=== PATIENT | male | born 1980 ===

== ENCOUNTER 2025-04-21 07:00 | Day surgery (SDC) | payer OTHER ==
[2025-04-11 11:14] LABS: BASO % 1.0 % (0.1-1.2); EOS # 0.27 (0.04-0.54); EOS % 5.5 % (0.7-7.0); LYMPH # 1.56 (1.18-3.74); LYMPH % 31.5 % (19.3-53.1); MEAN PLATELET VOLUME 11.60 fl (9.4-12.4); MONO # 0.31 (0.24-0.82); MONO % 6.3 % (4.7-12.5); NEUT # 2.75 (1.56-6.13); NEUT % 55.5 % (34.0-71.1); RED CELL DISTRIBUTION WIDTH 11.9 % (11.6-14.4)
[2025-04-11 11:17] VITALS: BP 121/81
[2025-04-11 11:19] LABS: URINE APPEARANCE Clear; URINE BILIRRUBIN Negative (NEGATIVE); URINE BLOOD Negative; URINE COLOR Yellow; URINE GLUCOSE Negative (NEGATIVE); URINE KETONE Negative (NEGATIVE); URINE LEUKOCYTE Negative; URINE NITRATE Negative; URINE PROTEIN Negative (NEGATIVE); URINE UROBILINOGEN 0.2 E.U./dl
[2025-04-11 11:25] LABS: URINE BACTERIA 4.7 uL (0.0-1933); URINE RBC 12.0 uL (0.0-20.8)
[2025-04-11 11:31] LABS: URINE CAST 0.00 uL (0.0-1.40); URINE EPITHELIAL CELLS 0.7 uL (0.0-38.8); URINE WBC 1.0 uL (0.0-23.2)
[2025-04-11 11:41] LABS: INR 1.11
[2025-04-11 11:56] LABS: ALT/SGPT 52.0 U/L (12-78); AST/SGOT 23.0 U/L (15-37); BILIRUBIN TOTAL 0.61 mg/dL (0.3-1.2); BUN CREA RATIO 21.0 (7.0-25.0); CREATININE SERUM 1.04 mg/dL (0.70-1.30); GFR 77.58; GLOBULINA 2.8 G/DL (2.4-3.5); GLUCOSE FASTING 107.0 mg/dL (65-100); OSMOLALITY SERUM 285.0 MOSM/KG (275-295)
[~2025-04-21] VITALS: Ht 177.8 cm; Wt 93.0 kg
[~2025-04-21 07:00] MED LIST: CRESTOR40 MG PO
[2025-04-21] MEDS ORDERED: DIBUCAINE 30 GM TUBE ONE (08:05)
[2025-04-21] MEDS ORDERED: BUPIVACAINE HCL/Mpf 0.5% 10ML VIAL ONE (08:05)
[2025-04-21] MEDS ORDERED: HEMOSTATIC MATRIX 1 KIT KIT TOP ONE (08:05)
[2025-04-21] MEDS ORDERED: CHLORHEXIDINE GLUCONATE 120 ML BOTTLE TOP ONE (08:06)
[2025-04-21] MEDS ORDERED: METRONIDAZOLE/SODIUM CHLORIDE 500 MG/100 ML PIGGYBACK IV ONE (08:06)
[2025-04-21] MEDS ORDERED: LIDOCAINE HCL 1%/EPINEPHRINE 20ML VIAL IJ ONE (08:06)
[2025-04-21] MEDS ORDERED: CEFTRIAXONE SODIUM 2,000 MG VIAL IV ONE (11:45)
[2025-04-21] MEDS ORDERED: PERCOCET 5-3251 EACH PO (11:48)
[2025-04-21] MEDS ORDERED: RECTICARE30 GM TOP (11:48)
== END 2025-04-21 16:30 | disposition home or self-care (01) ==
LOC: CIR.AMB 07:00
PROVIDERS: ATTEND Surgery
DX: K60.1 Chronic anal fissure (principal); K62.5 Hemorrhage of anus and rectum; K62.4 Stenosis of anus and rectum; K60.321 Anal fistula, complex, initial; Z91.013 Allergy to seafood; Z91.041 Radiographic dye allergy status